=== PATIENT | male | born 1945 | race Hispanic/Latino ===

== ENCOUNTER 2016-11-06 08:09 | Day surgery (SDC) | payer MEDICARE ==
[~2016-11-06 08:09] MED LIST: ADRENALIN IR ONE; TETCAINE OD PRN
[2016-11-06] MEDS ORDERED: TETRACAINE 0.5% OD PRN (08:13)
[2016-11-06] MEDS: MYDRIACYL OD SCH ×3 (11:48→12:02)
[2016-11-06] MEDS: AK-Dilate OD SCH ×3 (11:48→12:01)
[2016-11-06] MEDS: VIGAMOX OD SCH ×3 (11:48→12:02)
--- NOTE | 2016-11-06 12:03 | Anesthesia Consultation ---
Anesthesia Consult and Med Hx Date of service: 11/06/16 - Airway Anesthetic Teeth Evaluation: Good ROM Head & Neck: Adequate Mental/Hyoid Distance: Adequate Mallampati Class: Class II Intubation Access Assessment: Probably Good - Pulmonary Exam CTA: Yes - Cardiac Exam Cardiac Exam: RRR - Pre-Operative Health Status ASA Pre-Surgery Classification: ASA3 Proposed Anesthetic Plan: MAC - Pulmonary Hx Smoking: No Hx Sleep Apnea: No - Cardiovascular System Hx Hypertension: Yes Hx Coronary Artery Disease: Yes Hx Heart Attack/AMI: (CABG 2006) Hx Angina: No Hx Percutaneous Transluminal Coronary Angioplasty (PTCA): Yes - Central Nervous System Hx Psychiatric Problems: No - Other Systems Hx Cancer: Yes (PROSTATE , DX: 07/2007)
--- NOTE | 2016-11-06 12:04 | Anesthesia Day of Surgery ---
Anesthesia Day of Surgery - Day of Surgery Patient Examined: Yes Patient H&P Reviewed: Yes Patient is NPO: Yes
[2016-11-06] MEDS ORDERED: SUBLIMAZE ONE ×2 (14:00→14:02)
[2016-11-06] MEDS ORDERED: VERSED ONE (14:02)
[2016-11-06] MEDS ORDERED: XYLOCAINE MPF 1% INFILTRATI ONE (14:32)
[2016-11-06] MEDS ORDERED: ADRENALIN IR ONE (14:33)
--- NOTE | 2016-11-06 15:17 | Short Stay Summary ---
Short Stay Documentation Date of service: 11/06/16 - History H&P: obtained from office - Allergies and Medications Current Medications: Allergies heparin Allergy (Unverified 10/31/16 12:34) CLOG UP PT ARTERIES Penicillins Allergy (Unverified 10/31/16 12:34) Unknown Home Medications Medication Instructions Recorded Confirmed Last Taken Type Aspirin [Adult Low Dose Aspirin EC] 81 mg PO QDAY 10/15/16 10/31/16 10/15/16 20: 00 History B2/Vit A,C & E/Lut/Zeaxanth/Mn 1 tab PO DAILY 10/15/16 10/31/16 10/15/16 20:00 History [Icaps Tablet] Brinzolamide/Brimonidine Tart 1 drop OP BID 10/15/16 10/31/16 10/16/16 08:00 History [Simbrinza 1%-0.2% Eye Drops] Latanoprost 0.005% [Xalatan 0.005%] 1 drop OP QPM 10/15/16 10/31/16 10/15/16 20: 00 History Timolol 0.5% [Timoptic] 1 drops OP BID 10/15/16 10/31/16 10/16/16 09:00 History Active Medications Moxifloxacin HCl (Vigamox) 1 drops OD Q5MIN [facility] Stop: 11/08/16 00:02 Last Admin: 11/06/16 12:02 Dose: 1 drops Phenylephrine HCl (Ak-Dilate) 1 drops OD Q5M [facility] Last Admin: 11/06/16 12:01 Dose: 1 drops Tetracaine HCl (Tetracaine 0.5%) 1 drops OD PRN PRN PRN Reason: Anesthesia Stop: 11/06/16 20:00 Last Admin: 11/06/16 11:47 Dose: 1 drops Tropicamide (Mydriacyl) 1 drops OD Q5MIN [facility] Stop: 11/06/16 20:00 Last Admin: 11/06/16 12:02 Dose: 1 drops - Brief post op/procedure progress note Date of procedure: 11/06/16 Pre-op diagnosis: cataract astigmatism and meiosis Post-op diagnosis: same Procedure: Phacoemulsification with intraocular lens insertion tolerate lens and the Malugyan ring right eye Anesthesia: MAC Surgeon: NALINI E NGAKENG Estimated blood loss: none Pathology: none Condition: stable - Disposition Condition at discharge: Good Disposition: DISCHARGED TO HOME OR SELFCARE - Discharge Diagnoses (1) Astigmatism of left eye Status: Acute (2) Cataract Status: Acute (3) Astigmatism of right eye Status: Resolved
--- NOTE | 2016-11-06 15:24 | Operative Report ---
Operative Report Operative Report: PATIENT'S NAME: DATE OF : DATE OF SURGERY: 11/06/2016 PREOPERATIVE DIAGNOSIS: Cataract and Astigmatism right Eye and meiosis POSTOPERATIVE DIAGNOSIS: Same OPERATIVE PROCEDURE: Phacoemulsification with intraocular lens implantation, right eye Toric and malugyan ring SURGEON: Isabelle Mckinley M.D. LENS: [id number] 15.5D at 130 ANESTHESIA: Monitored anesthesia care in combination with topical and intracameral anesthesia because of the established specific risk of reflux, arrhythmias, or anxiety attacks associated with ocular manipulation, as well as the difficulty of the log sorting supervisor to manage such potentially catastrophic events while simultaneously attempting to complete the surgical procedure and was deemed necessary for the patient's safety to have a Nurse Stoner Out present during the procedure whenever possible. A Nurse Stoner Out was utilized to regulate the intravenous sedation of the patient so the patient was cooperative yet not asleep in order for the patient to successfully maintain fixation of the eye on the operating light of the microscope. COMPLICATIONS: [No surgical complications.] No blood loss. ALLERGIES: Heparin penicillin PROGNOSIS: Excellent INDICATIONS FOR SURGERY: The patient is undergoing surgery in the hopes of eliminating or improving these visual difficulties. PROCEDURE: After arriving at the surgery center, the patient was given topical anesthetic and dilating drops, as noted in the record. The patient was then taken into the operating room and given more anesthetic drops. The eyelids , lashes, and lid margins were scrubbed with Betadine solution, and the patient was draped. The Nurse Stoner Out administered IV sedation and monitored the patient during the procedure. A speculum was placed between the eyelids, and the patient was asked to fixate on the light of the microscope. The patient has been noted to have pre-existing astigmatism as well as a concern to be left with as little astigmatism as possible after surgery in order to improve their uncorrected visual acuity after surgery.~ They have, therefore, elected to have our option for astigmatism management and have signed a waiver acknowledging their understanding of the process, its benefits and risks, and wish to proceed with this option. Based on the preoperative evaluation of the topography of their corneal mapping of astigmatism, the wound orientation, wound size, and use of a relaxing incision have been utilized to minimize their post operative astigmatism. In some cases a toric, or astigmatic , intraocular lens implant may be used in conjunction with a relaxing incision or in place of one. When an astigmatic lens is used, preoperative evaluation of the topography with careful planning of the lens position and power of the astigmatic correction by lens are all done. ~The calculation of the lens power for the astigmatic correction and the lens orientation of the astigmatic lens is performed separately and subsequently from the normal lens power calculation for the standard cataract lens power needed for standard surgery without astigmatism management. ~In fact, the toric lens power calculation can not be done until the standard lens power calculations are performed and finished - so that is a totally separate part of the preoperative planning. The eye was then fixated with a round dickey, which would damage the conjunctival tissues or vessel, and a stab incision was made in the peripheral clear cornea into the anterior chamber. Viscoelastic was next used to fill the anterior chamber. The eye was once again fixated with the round dickey and a keratome was used make an incision in clear cornea peripherally on my right hand side temporally. A Malugyan ring was inserted because the pupil was bout 3mm. Hydrodissection was carried out utilizing a U-shaped cannula and balanced salt solution to delineate the cortical material from the capsule and the nucleus from the cortical material. The phaco tip was introduced into the eye and used to remove the anterior cortical material in the area of the capsulotomy. Then the phaco tip was buried into the nucleus, and a chopping instrument was introduced into the eye and used to provide countertraction in the nucleus between this instrument and the phaco tip fracturing the nucleus. This procedure was repeated multiple times, providing multiple small segments of the lens, and then the phaco tip was used to remove each of these segments. An I/A tip was then used to remove the remaining cortex. An one-piece, acrylic intraocular lens was then placed into an inserting cartridge. The tip of the inserting cartridge was introduced into the keratome incision and into the anterior chamber. The implant was gently advanced through the cartridge and into the eye, where it unfolded, and both haptics were placed in the capsular bag, where it centered nicely and appeared to be well fixated. Prior to prepping the patient, the patient was asked to sit up on the operative bed and look across the room. ~Utilizing a special marking instrument, the cardinal meridians at 3:00, 6:00, and 9:00 were marked with Gentian иван.~ These boyd were used later in the surgery as reference boyd to identify the proper location of the axis for the placement of the astigmatic, or toric, intraocular lens.~ The axis was marked with Gentian иван prior to entering the eye.~ After placement of the intraocular lens implant and removal of the viscoelastic from both the capsular bag and anterior chamber, the lens was positioned so it was perfectly aligned along this axis. The Malugyan ring was removed. The orientation was rechecked once the wounds were hydrated and the integrity of the wounds was verified. The anterior chamber was then filled with balanced salt solution, and hydration of the wound was used to cause swelling of the wound and more appropriate watertight closure. When the wound was found to be firm, the patient was asked to comment on how bright the light was. If there was no light perception at all or if the light was substantially dimmer than during the rest of the surgery, the amount of fluid in the eye was decompressed to lower the intraocular pressure until the patient could see the bright light again. This was done to avoid any damage or decreased blood flow to the optic nerve. MEDICATIONS APPLIED AT END OF SURGERY: One drop vigamox and Pred Forte The patient was given a shield to wear at night and was instructed not to rub or push on the eye. DISCHARGE SUMMARY: The patient was released in stable condition. The patient and those with the patient were given a written sheet of postoperative instructions and counseling on any abnormal laboratory studies. The patient is to see us tomorrow for follow-up in the office and is to call immediately for any difficulties. Isabelle Mckinley M.D. Date
--- NOTE | 2016-11-06 16:35 | Post Anesthesia Evaluation ---
- Post Anesthesia Evaluation Patient Participated: Yes Airway Patent: Yes Stable Respiratory Function: Yes Temp > 96.8F: Yes Pain Manageable: Yes Adequeate Hydration: Yes Anesthesia Complications: No Block Receding Appropriately: Not Applicable
[2016-11-06] MEDS ORDERED: PRED FORTE 1% OD SCH (18:00)
[2016-11-06 18:11] VITALS: BP 126/58
== END 2016-11-06 15:55 | disposition home or self-care (01) ==
LOC: OR 08:09
DX: H26.9 Unspecified cataract (principal); H52.203 Unspecified astigmatism, bilateral; I10 Essential (primary) hypertension; I25.10 Atherosclerotic heart disease of native coronary artery without angina pectoris; Z85.46 Personal history of malignant neoplasm of prostate; Z95.1 Presence of aortocoronary bypass graft; Z95.5 Presence of coronary angioplasty implant and graft; Z95.2 Presence of prosthetic heart valve; E78.00 Pure hypercholesterolemia, unspecified; Z98.890 Other specified postprocedural states
CPT/HCPCS: 66982; J0171; J2250; J3010; V2630